=== PATIENT | female | born 1980 | race Hispanic/Latino ===

== ENCOUNTER 2017-10-30 19:06 | Emergency (ER) | payer SELFPAY ==
[2017-10-30] MEDS ORDERED: NA CHLORIDE 0.9% 1,000 ML ONE (20:17)
[2017-10-30 20:21] LABS: Absolute Lymphocytes (CBC) 2.4 K/uL (0.7-4.9); Absolute Monocytes 0.7 K/uL (0.1-1.3); Absolute Neutrophil 10.9 K/uL (1.8-8.0); Basophils % 0.4 % (0-1.3); Eosinophils % 0.3 % (0-4.4); Hematocrit 42.4 % (36.0-45.0); Lymphocytes % 16.9 % (15.3-44.8); MCH 30.6 pg (27.0-35.0); MCV 89.3 fL (80-100); Monocytes % 4.9 % (3.3-12.3); RBC Red Blood Cell Count 4.75 M/uL (3.86-4.86)
[2017-10-30 20:36] LABS: Potassium 3.7 mmol/L (3.5-5.1)
[2017-10-30 21:11] LABS: Urine Blood NEGATIVE (NEG); Urine Glucose NEGATIVE (NEG); Urine Protein 1+ (NEG); Urine Specific Gravity 1.015 (1.005-1.030)
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
== END 2017-10-30 22:52 | disposition home or self-care (01) ==
LOC: ER 19:06
DX: M54.9 Dorsalgia, unspecified (principal); M25.511 Pain in right shoulder; V49.49XA Driver injured in collision with other motor vehicles in traffic accident, initial encounter
CPT/HCPCS: 36415; 70450; 71260; 72125; 74177; 80048; 81003; 81025; 85025; 86850; 86900; 86901; 96360; 96361; 99284; J7030; Q9967

== ENCOUNTER 2019-02-15 09:58 | Observation (INO) | payer SELFPAY ==
[2019-02-15 10:57] LABS: Absolute Lymphocytes (CBC) 2.5 K/uL (0.7-4.9); Basophils % 0.7 % (0-1.3); Hematocrit 44.4 % (36.0-45.0); Lymphocytes % 32.6 % (15.3-44.8); MPV 8.2 fL (7.6-11.3); RBC Red Blood Cell Count 4.79 M/uL (3.86-4.86)
[2019-02-15 11:04] LABS: Protime INR 1.03
[2019-02-15 11:19] LABS: ALT/SGPT 25 U/L (12-78); AST/SGOT 23 U/L (15-37); Albumin 4.3 g/dL (3.4-5.0); Alkaline Phosphatase 80 U/L (45-117); BUN Blood Urea Nitrogen 12 mg/dL (7-18); Bicarbonate 29 mmol/L (21-32); Bilirubin Direct 0.1 mg/dL (0-0.2); Bilirubin Total 0.4 mg/dL (0.2-1.0); Glucose Level 95 mg/dL (74-106); NT PRO-BNP 37 pg/mL (<125); Potassium 4.2 mmol/L (3.5-5.1); Protein, Total 8.4 g/dL (6.4-8.2); Sodium Level 139 mmol/L (136-145); Troponin (Emerg Dept Use Only) < 0.02 ng/mL (0.0-0.045)
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
--- NOTE | 2019-02-15 12:16 | ER ---
Nurse's Notes [facility] Name: Elissa Chavez Age: 38 yrs Sex: Female : 1980 Arrival Date: 02/15/2019 Time: 10:02 Bed 18 Private MD: Diagnosis: Other chest pain;Dyspnea;Tachycardia, unspecified Presentation: 02/15 10:09 Presenting complaint: Patient states: I have been feeling weak like I am going to pass la1 out and having left arm numbness on and off for the last 2 weeks. Whenever I start to try to walk I feel like i am going to pass out. Transition of care: patient was not received from another setting of care. Onset of symptoms is unknown. Risk Assessment: Do you want to hurt yourself or someone else? Patient reports no desire to harm self or others. Initial Sepsis Screen: Does the patient meet any 2 criteria? HR > 90 bpm. Does the patient have a suspected source of infection? No. Patient's initial sepsis screen is negative. Care prior to arrival: None. 10:09 Method Of Arrival: Ambulatory la1 10:09 Acuity: YOANNA 3 la1 Historical: - Allergies: 10:10 No Known Allergies; la1 - PMHx: 10:10 None; la1 - Immunization history:: Adult Immunizations up to date. - Social history:: Smoking status: Patient/guardian denies using tobacco. - Ebola Screening: : No symptoms or risks identified at this time. Screenin:07 Abuse screen: Denies threats or abuse. Denies injuries from another. Nutritional ph screening: No deficits noted. Tuberculosis screening: No symptoms or risk factors identified. Fall Risk None identified. Assessment: 11:00 General: Appears in no apparent distress. comfortable, slender, well groomed, Behavior ph is calm, cooperative, appropriate for age, Denies fever, feeling ill. Pain: Complains of pain in chest and left arm. Neuro: Level of Consciousness is awake, alert, obeys commands, Oriented to person, place, time, situation, Reports dizziness, weakness Denies headache. Cardiovascular: Reports chest pain, fatigue, lightheadedness, palpitations, Denies nausea, shortness of breath, vomiting, Capillary refill < 3 seconds in bilateral fingers Patient's skin is warm and dry. Rhythm is sinus rhythm. Respiratory: Airway is patent Respiratory effort is even, unlabored, Respiratory pattern is regular, symmetrical. GI: No signs and/or symptoms were reported involving the gastrointestinal system. Derm: Skin is intact, is healthy with good turgor, Skin is pink, warm \T\ dry. Musculoskeletal: Circulation, motion, and sensation intact. Range of motion: intact in all extremities. 12:00 Reassessment: Patient appears in no apparent distress at this time. Patient and/or ph family updated on plan of care and expected duration. Pain level reassessed. Patient is alert, oriented x 3, equal unlabored respirations, skin warm/dry/pink. 13:14 Reassessment: Patient appears in no apparent distress at this time. Patient and/or ph family updated on plan of care and expected duration. Pain level reassessed. Patient is alert, oriented x 3, equal unlabored respirations, skin warm/dry/pink. 14:00 Reassessment: Patient appears in no apparent distress at this time. Patient and/or ph family updated on plan of care and expected duration. Pain level reassessed. Patient is alert, oriented x 3, equal unlabored respirations, skin warm/dry/pink. 15:00 Reassessment: Patient appears in no apparent distress at this time. Patient and/or ph family updated on plan of care and expected duration. Pain level reassessed. Patient is alert, oriented x 3, equal unlabored respirations, skin warm/dry/pink. 16:06 Reassessment: Patient appears in no apparent distress at this time. Patient and/or ph family updated on plan of care and expected duration. Pain level reassessed. Patient is alert, oriented x 3, equal unlabored respirations, skin warm/dry/pink. Attempted to call report, receiving nurse unavailable. Vital Signs: 10:10 BP 167 / 79; Pulse 120; Resp 16; Temp 98.4; Pulse Ox 100% on R/A; Weight 56.7 kg; la1 Height 5 ft. 1 in. (154.94 cm); 11:08 BP 126 / 74; Pulse 97; Resp 18; Pulse Ox 100% on R/A; ph 12:00 BP 102 / 56; Pulse 102; Resp 18; Pulse Ox 98% on R/A; ph 13:15 BP 134 / 79; Pulse 107; Resp 18; Pulse Ox 100% on R/A; ph 14:06 BP 136 / 83; Pulse 111; Resp 15; Temp 98.6(O); Pulse Ox 100% on R/A; mh5 15:00 BP 136 / 83; Pulse 113; Resp 18; Pulse Ox 99% on R/A; ph 15:57 BP 131 / 75; Pulse 102; Resp 18; Temp 98.0; Pulse Ox 100% on R/A; ph 10:10 Body Mass Index 23.62 (56.70 kg, 154.94 cm) la1 ED Course: 10:02 Patient arrived in ED. mr 10:08 Getachew Guzman MD is Attending Physician. samir 10:10 Triage completed. la1 10:10 Arm band placed on right wrist. la1 10:17 Jessica Zayas, FRANCO is Primary Nurse. ph 10:45 Inserted saline lock: 22 gauge in left antecubital area, using aseptic technique. Blood ph collected. 10:51 EKG done, by solar fabrication technician. reviewed by Getachew Guzman MD. sm3 11:06 Patient has correct armband on for positive identification. Placed in gown. Bed in low ph position. Call light in reach. Side rails up X 1. shelter monitor on. Pulse ox on. NIBP on. Door closed. Noise minimized. Warm blanket given. Head of bed elevated. 11:25 X-ray completed. Portable x-ray completed in exam room. Patient tolerated procedure mh1 well. 11:27 XRAY Chest (1 view) In Process Unspecified. EDMS 12:14 Phillip Bang is Hospitalizing Provider. samir 13:15 No provider procedures requiring assistance completed. ph 15:57 Patient admitted, IV remains in place. ph Administered Medications: 12:52 Drug: Aspirin 162 mg Route: PO; ph 16:08 Follow up: Response: No adverse reaction ph 12:52 Drug: Pepcid 20 mg Route: IVP; Site: left antecubital; ph 16:07 Follow up: Response: No adverse reaction ph 16:03 Drug: Lopressor 25 mg Route: PO; ph 16:07 Follow up: Response: No adverse reaction ph 16:04 Drug: Lovenox 1 mg/kg Route: Sub-Q; Site: right lower abdomen; ph 16:07 Follow up: Response: No adverse reaction ph Outcome: 12:15 Decision to Hospitalize by Provider. samir 17:04 Patient left the ED. ph 17:04 Admitted to Tele accompanied by tech, family with patient, via wheelchair, with chart. ph 17:04 Condition: stable 17:04 Instructed on the need for admit. Signatures: Dispatcher [employer] EDGetachew Ireland MD MD cha Rivera, Mary mr Stanley, Agatha mh1 Avinash Freitas RN RN la1 Hall, Patricia, RN RN ph Martinez, Maria [facility] Colleen John [facility]
--- NOTE | 2019-02-15 12:16 | EDPHYS ---
Physician Documentation [facility] Name: Elissa Chavez Age: 38 yrs Sex: Female : 1980 Arrival Date: 02/15/2019 Time: 10:02 Bed 18 Private MD: ED Physician Getachew Guzman HPI: 02/15 12:08 This 38 yrs old Female presents to ER via Ambulatory with complaints of samir Numbness Of Arm. 12:08 The patient or guardian complains of pain. The complaints affect the left bicep, dorsal samir aspect of left forearm, left tricep and palmar aspect of left forearm. Historical: - Allergies: 10:10 No Known Allergies; la1 - PMHx: 10:10 None; la1 - Immunization history:: Adult Immunizations up to date. - Social history:: Smoking status: Patient/guardian denies using tobacco. - Ebola Screening: : No symptoms or risks identified at this time. ROS: 12:10 Constitutional: Negative for fever, chills, and weight loss, Eyes: Negative for injury, samir pain, redness, and discharge, ENT: Negative for injury, pain, and discharge, Neck: Negative for injury, pain, and swelling, Abdomen/GI: Negative for abdominal pain, nausea, vomiting, diarrhea, and constipation, Back: Negative for injury and pain, : Negative for injury, bleeding, discharge, and swelling, MS/Extremity: Negative for injury and deformity, Skin: Negative for injury, rash, and discoloration, Neuro: Negative for headache, weakness, numbness, tingling, and seizure, Psych: Negative for depression, anxiety, suicide ideation, homicidal ideation, and hallucinations, Allergy/Immunology: Negative for hives, rash, and allergies, Endocrine: Negative for neck swelling, polydipsia, polyuria, polyphagia, and marked weight changes, Hematologic/Lymphatic: Negative for swollen nodes, abnormal bleeding, and unusual bruising. 12:10 Cardiovascular: Positive for chest pain. 12:10 Respiratory: Positive for cough, shortness of breath, at rest. Exam: 12:10 Constitutional: This is a well developed, well nourished patient who is awake, alert, samir and in no acute distress. Head/Face: Normocephalic, atraumatic. Eyes: Pupils equal round and reactive to light, extra-ocular motions intact. Lids and lashes normal. Conjunctiva and sclera are non-icteric and not injected. Cornea within normal limits. Periorbital areas with no swelling, redness, or edema. ENT: Nares patent. No nasal discharge, no septal abnormalities noted. Tympanic membranes are normal and external auditory canals are clear. Oropharynx with no redness, swelling, or masses, exudates, or evidence of obstruction, uvula midline. Mucous membranes moist. Neck: Trachea midline, no thyromegaly or masses palpated, and no cervical lymphadenopathy. Supple, full range of motion without nuchal rigidity, or vertebral point tenderness. No Meningismus. Chest/axilla: Normal chest wall appearance and motion. Nontender with no deformity. No lesions are appreciated. Respiratory: Lungs have equal breath sounds bilaterally, clear to auscultation and percussion. No rales, rhonchi or wheezes noted. No increased work of breathing, no retractions or nasal flaring. Abdomen/GI: Soft, non-tender, with normal bowel sounds. No distension or tympany. No guarding or rebound. No evidence of tenderness throughout. Back: No spinal tenderness. No costovertebral tenderness. Full range of motion. Skin: Warm, dry with normal turgor. Normal color with no rashes, no lesions, and no evidence of cellulitis. MS/ Extremity: Pulses equal, no cyanosis. Neurovascular intact. Full, normal range of motion. Neuro: Awake and alert, GCS 15, oriented to person, place, time, and situation. Cranial nerves II-XII grossly intact. Motor strength 5/5 in all extremities. Sensory grossly intact. Cerebellar exam normal. Normal gait. Psych: Awake, alert, with orientation to person, place and time. Behavior, mood, and affect are within normal limits. 12:10 Cardiovascular: Rate: tachycardic, Rhythm: regular, Pulses: no pulse deficits are appreciated, Heart sounds: normal, normal S1and S2, no S3 or S4, no murmur, no rub, no gallop, Edema: is not appreciated, JVD: is not appreciated. Vital Signs: 10:10 BP 167 / 79; Pulse 120; Resp 16; Temp 98.4; Pulse Ox 100% on R/A; Weight 56.7 kg; la1 Height 5 ft. 1 in. (154.94 cm); 11:08 BP 126 / 74; Pulse 97; Resp 18; Pulse Ox 100% on R/A; ph 12:00 BP 102 / 56; Pulse 102; Resp 18; Pulse Ox 98% on R/A; ph 13:15 BP 134 / 79; Pulse 107; Resp 18; Pulse Ox 100% on R/A; ph 14:06 BP 136 / 83; Pulse 111; Resp 15; Temp 98.6(O); Pulse Ox 100% on R/A; mh5 15:00 BP 136 / 83; Pulse 113; Resp 18; Pulse Ox 99% on R/A; ph 15:57 BP 131 / 75; Pulse 102; Resp 18; Temp 98.0; Pulse Ox 100% on R/A; ph 10:10 Body Mass Index 23.62 (56.70 kg, 154.94 cm) la1 MDM: 10:15 Patient medically screened. [facility] 12:10 Data reviewed: vital signs, nurses notes, lab test result(s), EKG, radiologic studies, samir plain films. 02/15 10:32 Order name: Basic Metabolic Panel; Complete Time: 11:50 ph 02/15 10:32 Order name: CBC with Diff; Complete Time: 11:50 ph 02/15 10:32 Order name: LFT's; Complete Time: 11:50 ph 02/15 10:32 Order name: Magnesium; Complete Time: 11:50 ph 02/15 10:32 Order name: NT PRO-BNP; Complete Time: 11:50 ph 02/15 10:32 Order name: PT-INR; Complete Time: 14:45 ph 02/15 10:32 Order name: Troponin (emerg Dept Use Only); Complete Time: 11:50 ph 02/15 12:03 Order name: Urine Dipstick--Ancillary (enter results); Complete Time: 14:45 bd 02/15 12:06 Order name: Test, Serum; Complete Time: 14:45 bd 02/15 12:07 Order name: DD bd 02/15 12:18 Order name: D-Dimer; Complete Time: 14:45 EDMS 02/15 12:20 Order name: TSH; Complete Time: 14:45 samir 02/15 12:20 Order name: UDS; Complete Time: 14:45 samir 02/15 10:32 Order name: XRAY Chest (1 view); Complete Time: 11:50 ph 02/15 10:32 Order name: EKG; Complete Time: 10:33 ph 02/15 10:32 Order name: Cardiac monitoring; Complete Time: 10:55 ph 02/15 10:32 Order name: EKG - Nurse/Tech; Complete Time: 10:55 ph 02/15 10:32 Order name: IV Saline Lock; Complete Time: 10:55 ph 02/15 10:32 Order name: Labs collected and sent; Complete Time: 10:55 ph 02/15 10:32 Order name: O2 Per Protocol; Complete Time: 10:55 ph 02/15 10:32 Order name: O2 Sat Monitoring; Complete Time: 10:56 ph 02/15 12:20 Order name: Echo w/ Doppler [facility] 02/15 14:46 Order name: CT Chest For PE Angio [facility] 02/15 15:25 Order name: CT; Complete Time: 15:59 EDMS Administered Medications: 12:52 Drug: Aspirin 162 mg Route: PO; ph 16:08 Follow up: Response: No adverse reaction ph 12:52 Drug: Pepcid 20 mg Route: IVP; Site: left antecubital; ph 16:07 Follow up: Response: No adverse reaction ph 16:03 Drug: Lopressor 25 mg Route: PO; ph 16:07 Follow up: Response: No adverse reaction ph 16:04 Drug: Lovenox 1 mg/kg Route: Sub-Q; Site: right lower abdomen; ph 16:07 Follow up: Response: No adverse reaction ph Disposition: 02/15/19 12:15 Hospitalization ordered by Phillip Bang for Observation. Preliminary diagnosis are Other chest pain, Dyspnea, Tachycardia, unspecified. - Bed requested for Telemetry/MedSurg (observation). - Status is Observation. ph - Condition is Stable. - Problem is new. - Symptoms have improved. UTI on Admission? No Signatures: Dispatcher [employer] EDMS Getachew Guzman MD MD cha Smirch, Shelby, RN RN ss Avinash Freitas RN RN laJessica Dhillon RN RN ph Corrections: (The following items were deleted from the chart) 12:18 12:07 D-DIMER+COAG.LAB.BRZ ordered. EDMS EDMS 15:28 12:15 Hospitalization Ordered by Phillip Bang for Observation. Preliminary diagnosis ss is Other chest pain; Dyspnea; Tachycardia, unspecified. Bed requested for Telemetry/MedSurg (observation). Status is Observation. Condition is Stable. Problem is new. Symptoms have improved. UTI on Admission? No. samir 17:04 15:28 02/15/2019 12:15 Hospitalization Ordered by Phillip Bang for Observation. ph Preliminary diagnosis is Other chest pain; Dyspnea; Tachycardia, unspecified. Bed requested for Telemetry/MedSurg (observation). Status is Observation. Condition is Stable. Problem is new. Symptoms have improved. UTI on Admission? No. ss
--- NOTE | 2019-02-15 12:27 | EKG ---
Test Date: 2019-02-15 Test Time: 10:26:36 Paediatrician: BRIDGETT MEASUREMENT RESULTS: Intervals: Rate: 114 IA: 152 QRSD: 74 QT: 322 QTc: 443 [place]: P: 52 IA: 152 QRS: 49 T: 39 INTERPRETIVE STATEMENTS: Sinus tachycardia Otherwise normal ECG No previous ECG available for comparison Electronically Signed On 02-15-19 12:26:15 CDT by Rafa Schwartz
[2019-02-15] MEDS ORDERED: ASPIRIN 81 MG CHEWABLE TABLET ONE (12:32)
[2019-02-15] MEDS ORDERED: METOPROLOL TAR 25 MG TAB ONE (12:32)
[2019-02-15] MEDS ORDERED: FAMOTIDINE 20 MG/2 ML VIAL IV ONE (12:32)
[2019-02-15] MEDS ORDERED: ENOXAPARIN 60 MG/0.6 ML SQ ONE (12:33)
[2019-02-15 13:12] LABS: Urine Specific Gravity 1.005 (1.005-1.030)
[2019-02-15 13:13] LABS: Urine Blood NEGATIVE (NEG); Urine Glucose NEGATIVE (NEG); Urine Protein NEGATIVE (NEG); Urine pH 5.5 (5.0-7.0)
[2019-02-15 13:14] LABS: Barbiturates NEGATIVE (NEGATIVE); Benzodiazepines NEGATIVE (NEGATIVE); Cocaine NEGATIVE (NEGATIVE); METHAMPHETAM NEGATIVE (NEGATIVE); Methadone NEGATIVE (NEGATIVE); Opiates NEGATIVE (NEGATIVE); Phencyclidine NEGATIVE (NEGATIVE); THC Cannibis NEGATIVE (NEGATIVE)
--- NOTE | 2019-02-15 14:24 | P.HP ---
Certification for Inpatient With expected LOS: <2 Midnights Patient will require the following post-hospital care: None Practitioner: I am a practitioner with admitting privileges, knowledge of patient current condition, hospital course, and medical plan of care. Services: Services provided to patient in accordance with Admission requirements found in Title 42 Section 412.3 of the Code of Federal Regulations Patient History Date of Service: 02/15/19 Reason for admission: Chest pain and palpitation History of Present Illness: That is 38-year-old woman with no known past medical history presented emergency department with a complaint of intermittent chest pain and palpitation for about 2 weeks duration. She went to a clinic 1 week ago and was diagnosed with hypertension and placed on an antihypertensive for which she was taking once daily. She does not remember the name of the medication. She experienced another episode of chest pain which lasted for about 45 min while at work. Chest pain described as dull, radiates into the left shoulder, no relieving or aggravating factors, associated left upper extremity numbness. She denied any shortness of breath. In the ED, initial troponin is negative, EKG demonstrated sinus tachycardia and no ischemic changes. CBC and BMP are unremarkable. Toxicology screen is negative. Chest x-ray demonstrated no acute disease. Patient is placed under observation for chest pain rule out. Allergies No Known Allergies Allergy (Unverified 10/30/17 22:55) - Past Medical/Surgical History Diabetic: No Past Medical History: Patient denies medical history Past Surgical History: Patient denies surgical history - Family History Family History: Reviewed- Non-Contributory - Social History Smoking Status: Never smoker Alcohol use: No CD- Drugs: No Place of Residence: Home Review of Systems Other: General: No fever, no malaise, no unintentional weight loss. Eyes: No eye discharge, Respiratory: No cough, no shortness of breath. CVS: report lightheadedness. GI: No abdominal pain, no nausea no vomit, no constipation, no diarrhea. Genitourinary: No dysuria, no urinary frequency, no incontinence, no hematuria. Musculoskeletal: No joint pains, or joint swelling, no gait instability. Neurology: No headache, no asymmetric, weakness, no problem with swallowing. Except as documented, all other systems reviewed and negative. Physical Examination - Physical Exam General: Alert, In no apparent distress, Oriented x3 HEENT: Atraumatic, Normocephalic, PERRLA, Mucous membr. moist/pink Neck: Supple, 2+ carotid pulse no bruit, JVD not distended, No Thyromegaly Respiratory: Clear to auscultation bilaterally, Normal air movement Cardiovascular: No edema, Normal pulses, Normal S1 S2, No murmurs, Other ( Tachycardic) Capillary refill: <2 Seconds Gastrointestinal: Normal bowel sounds, Soft and benign, Non-distended, No tenderness Musculoskeletal: No clubbing, No swelling, No erythema, No tenderness Integumentary: No rashes Neurological: Normal gait, Normal speech, Normal strength at 5/5 x4 extr, Cranial nerves 3-12 intact Lymphatics: No axilla or inguinal lymphadenopathy - Studies Laboratory Data (last 24 hrs) 02/15/19 10:45: PT 12.1, INR 1.03 02/15/19 10:45: WBC 7.6, Hgb 14.9, Hct 44.4, Plt Count 293 02/15/19 10:45: Sodium 139, Potassium 4.2, BUN 12, Creatinine 0.74, Glucose 95, Magnesium 2.0, Total Bilirubin 0.4, AST 23, ALT 25, Alkaline Phosphatase 80 Imagings Data: Chest x-ray: No acute disease. EKG: Sinus tachycardia. Assessment and Plan - Problems (Diagnosis) (1) Chest pain Current Visit: Yes Status: Acute (2) Sinus tachycardia Current Visit: Yes Status: Acute (3) Elevated blood pressure reading Current Visit: Yes Status: Acute - Plan Low cardiac risk factors. Place patient under observation Trend troponin x3 Low-dose metoprolol for elevated blood pressure and tachycardia. Check TSH and free T4 Echocardiogram has been performed and result is pending. Cardiology consult pending echocardiogram and troponin results. Discharge Plan: Home - Advance Directives Does patient have a Living Will: No Does patient have a Durable POA for Healthcare: No
--- NOTE | 2019-02-15 15:22 | RAD REPORT ---
EXAM DESCRIPTION: CT - Chest For Pe Angio - 02/15/2019 3:06 pm CLINICAL HISTORY: Chest pain;Dyspnea COMPARISON: Head C Spine Cap W Con dated 10/30/2017 Chest film same date, CT trauma study October 2017 TECHNIQUE: Dynamically enhanced 2 millimeter thick images of the chest were obtained during administ ration of approximately 150mL Isovue 370 IV contrast. Coronal and oblique MIP reconstruction images w ere generated and reviewed. Exam utilizes a protocol to evaluate the pulmonary arterial tree. All CT scans are performed using dose optimization technique as appropriate and may include automated exposure control or mA/KV adjustment according to patient size. FINDINGS: No pulmonary emboli are identified. The aorta as imaged shows no acute or suspicious finding. No pericardial thickening or effusion. No infiltrate or mass in the lung parenchyma. No pleural effusion or pleural thickening. No mediastinal or hilar suspicious masses. Benign granulomatous type calcifications seen right hilum. No chest wall masses or abnormal axillary lymphadenopathy. IMPRESSION: No pulmonary emboli identified. No other significant or suspicious findings.
[2019-02-15] MEDS ORDERED: NITROGLYCERIN 0.4 MG/TAB SL PRN (16:56)
[2019-02-15] MEDS ORDERED: MORPHINE 2 MG/ML SYR IV PRN (16:56)
[2019-02-15] MEDS ORDERED: ALPRAZOLAM 0.25 MG TABLET PO PRN (16:56)
--- NOTE | 2019-02-15 17:13 | ECHO ---
HEIGHT: ft in WEIGHT: lb oz DATE OF STUDY: 02/15/[address]: Getachew Guzman MD 2-DIMENSIONAL: YES M.MODE: YES DOPPLER: YES COLOR FLOW: YES TDS: YES PORTABLE: DEFINITY: BUBBLE STUDY: DIAGNOSIS: CHEST PAIN, TACHY CARDIAC HISTORY: CATHERIZATION: NO SURGERY: NO PROSTHETIC VALVE: NO PACEMAKER: NO MEASUREMENTS (cm) DIASTOLIC (NORMALS) SYSTOLIC (NORMALS) IVSd 0.9 (0.6-1.2) LA Diam 1.5 (1.9-4.0) LVEF 59% LVIDd 2.2 (3.5-5.7) LVIDs 1.6 (2.0-3.5) %FS 29% LVPWd 0.9 (0.6-1.2) Ao Diam 2.2 (2.0-3.7) 2 DIMENSIONAL ASSESSMENT: RIGHT ATRIUM: NORMAL LEFT ATRIUM: NORMAL RIGHT VENTRICLE: NORMAL LEFT VENTRICLE: NORMAL TRICUSPID VALVE: NORMAL MITRAL VALVE: NORMAL PULMONIC VALVE: NORMAL AORTIC VALVE: NORMAL PERICARDIAL EFFUSION: NONE AORTIC ROOT: NORMAL LEFT VENTRICULAR WALL MOTION: NORMAL DOPPLER/COLOR FLOW: NORMAL COMMENTS: NORMAL TWO DIMENSIONAL ECHOCARDIOGRAM WITH DOPPLER. TECHNOLOGIST: JAUN COHEN
--- NOTE | 2019-02-15 19:47 | EKG ---
Test Date: 2019-02-15 Test Time: 17:59:15 [employer] Application Consultant: BRIDGETT MEASUREMENT RESULTS: Intervals: Rate: 96 [place]: 208 QRSD: 74 QT: 344 QTc: 434 [place]: P: 63 [place]: 208 QRS: 51 T: 34 INTERPRETIVE STATEMENTS: Normal sinus rhythm normal ECG Compared to ECG 02/15/2019 10:26:36 Sinus tachycardia no longer present Electronically Signed On 02-15-19 19:47:01 CDT by Rafa Schwartz
[2019-02-15] MEDS: METOPROLOL TAR 25 MG TAB PO SCH (20:52)
[2019-02-15 21:29] VITALS: BMI 22.7
[2019-02-16 06:11] VITALS: O2SAT 98
[2019-02-16] MEDS: METOPROLOL TAR 25 MG TAB PO SCH (08:59)
[2019-02-16] MEDS ORDERED: ASPIRIN EC 81 MG TAB PO SCH (09:00)
[2019-02-16] MEDS ORDERED: ENOXAPARIN 40 MG/0.4 ML SQ SCH (09:00)
--- NOTE | 2019-02-16 12:12 | EKG ---
Test Date: 2019-02-16 Test Time: 07:27:20 [employer]erglass Insulation Installer: CHANDU MEASUREMENT RESULTS: Intervals: Rate: 68 [place]: 180 QRSD: 72 QT: 398 QTc: 423 [place]: P: 73 [place]: 180 QRS: 59 T: 66 INTERPRETIVE STATEMENTS: Normal sinus rhythm Normal ECG Compared to ECG 02/15/2019 17:59:15 No significant changes Electronically Signed On 02-16-19 12:10:51 CDT by Rafa Schwartz
--- NOTE | 2019-02-16 13:46 | P.DS ---
Admission Date: 02/15/19 Discharge Date: 02/16/19 Disposition: ROUTINE DISCHARGE Discharge Condition: GOOD Reason for Admission: Chest pain and palpitation Consultations: Cardiology - Problems (1) Chest pain Current Visit: Yes Status: Acute (2) Sinus tachycardia Current Visit: Yes Status: Acute (3) Elevated blood pressure reading Current Visit: Yes Status: Acute Brief History of Present Illness: That is 38-year-old woman with no known past medical history presented emergency department with a complaint of intermittent chest pain and palpitation for about 2 weeks duration. She went to a clinic 1 week ago and was diagnosed with hypertension and placed on an antihypertensive for which she was taking once daily. She does not remember the name of the medication. She experienced another episode of chest pain which lasted for about 45 min while at work. Chest pain described as dull, radiates into the left shoulder, no relieving or aggravating factors, associated left upper extremity numbness. She denied any shortness of breath. In the ED, initial troponin is negative, EKG demonstrated sinus tachycardia and no ischemic changes. CBC and BMP are unremarkable. Toxicology screen was negative. Chest x-ray demonstrated no acute disease. Patient was placed under observation for chest pain rule out. Hospital Course: Troponin x3 was negative. Patient was placed on metoprolol. She became normotensive but was still mildly tachycardic with exertion. Serial EKG demonstrated sinus tachycardia. TSH was within normal. She was evaluated by cardiology-Dr. Schwartz and no further recommendation given. ACS has been ruled out. Patient is euthyroid. Her echocardiogram was normal. No medications recommended by cardiology. She is deemed clinically stable for discharge. Vital Signs/Physical Exam: Temp Pulse Resp BP Pulse Ox 96.9 F 74 16 111/64 100 02/16/19 08:00 02/16/19 08:00 02/16/19 08:00 02/16/19 08:00 02/16/19 08:00 General: Alert, In no apparent distress, Oriented x3 HEENT: Mucous membr. moist/pink Neck: Supple, JVD not distended, No Thyromegaly Respiratory: Clear to auscultation bilaterally, Normal air movement Cardiovascular: No edema, Normal pulses, Regular rate/rhythm Capillary refill: <2 Seconds Gastrointestinal: Normal bowel sounds, Soft and benign, Non-distended, No tenderness Musculoskeletal: No clubbing, No swelling Integumentary: No rashes Neurological: Normal strength at 5/5 x4 extr, Cranial nerves 3-12 intact Laboratory Data at Discharge: WBC 7.6 K/uL (4.3-10.9) 02/15/19 10:45 Hgb 14.9 g/dL (12.0-15.0) 02/15/19 10:45 Hct 44.4 % (36.0-45.0) 02/15/19 10:45 Plt Count 293 K/uL (152-406) 02/15/19 10:45 PT 12.1 SECONDS (9.5-12.5) 02/15/19 10:45 INR 1.03 02/15/19 10:45 Sodium 139 mmol/L (136-145) 02/15/19 10:45 Potassium 4.2 mmol/L (3.5-5.1) 02/15/19 10:45 BUN 12 mg/dL (7-18) 02/15/19 10:45 Creatinine 0.74 mg/dL (0.55-1.3) 02/15/19 10:45 Glucose 95 mg/dL (74-106) 02/15/19 10:45 Magnesium 2.0 mg/dL (1.8-2.4) 02/15/19 10:45 Total Bilirubin 0.4 mg/dL (0.2-1.0) 02/15/19 10:45 AST 23 U/L (15-37) 02/15/19 10:45 ALT 25 U/L (12-78) 02/15/19 10:45 Alkaline Phosphatase 80 U/L (45-117) 02/15/19 10:45 Troponin I < 0.02 ng/mL (0.0-0.045) 02/16/19 00:24 Home Medications: Aspirin Chewable [Aspirin Chewable*] 81 mg PO DAILY 30 Days #30 tab.chew New Medications: Aspirin Chewable [Aspirin Chewable*] 81 mg PO DAILY 30 Days #30 tab.chew Diet: AHA Activity: Ad quinn
[2019-02-16 14:57] VITALS: BP 118/67; TEMP 98.5
--- NOTE | 2019-02-16 16:47 | CON ---
History Of Present Illness: Ms. Bernardino Chavez's complaint is that her heart beats too fast. She is no t having chest pain or syncope since she has been in our hospital about 24 hours. She has had an ech ocardiogram that is normal. EKGs are normal except some of them shows sinus tachycardia, 1 of them u p to 114 beats per minute. Otherwise, they are normal. She has had normal thyroid functions. She d oes not have a fever. She has a normal echocardiogram with Doppler. There is no history of myocardi al infarction, stroke, diabetes, hypertension. No history of surgeries. No history of illnesses. Home Medications: None. Physical Examination: Vital Signs: 5 feet 1 inch, 120 pounds. HEENT: Normal. Lungs: Clear. Cardiac: Normal. Abdomen: Soft. Extremities: Normal. Impression: The patient is very focused on her heart, noticing her heart rate go to 114 when she is walking around. It is simply not an illness or disease. I think she could be discharged. I would n ot recommend treating her with a beta-scott. I think, it will probably make her feel bad and not d o well. I think she should be discharged. Encouraged to follow up with her primary care doctor, try to get into a regular exercise program, and I think that would help her more than anything. BARBARA Voice ID: [id number] Report ID: [id number]
== END 2019-02-16 15:36 | disposition home or self-care (01) ==
LOC: ER 09:58 → ERHOLD 14:29 → 2ND 16:45
PROVIDERS: ADMIT Internal Medicine; ATTEND Internal Medicine
DX: R07.9 Chest pain, unspecified (principal); R00.0 Tachycardia, unspecified; R03.0 Elevated blood-pressure reading, without diagnosis of hypertension
CPT/HCPCS: 36415; 71045; 71275; 80048; 80076; 80307; 81003; 83735; 83880; 84443; 84484; 84703; 85025; 85379; 85610; 93005; 93306; 94760; 96372; 96374; 99285; G0378; J1650; Q9967